=== PATIENT | female | born 1965 | race Caucasian/White ===

== ENCOUNTER → 2020-11-15 | Outpatient (CLI) | payer OTHER ==
[2020-11-15 15:04] VITALS: BP 141/74; PULSE 84; TEMP 98.2; BMI 46.0
--- NOTE | 2020-11-15 15:48 | P.BASOAP ---
Subjective Progress Note Date: 11/15/20 Principal diagnosis: Morbid obesity Patient presents the bariatric center after having not been seen for several years. Patient had her initial lap band placed in 2003. Presurgical weight 227. Approximately 1-2 years later patient had a gastric prolapse requiring band removal. Had a third surgery the patient had band replacement at [facility]. Patient's weight currently to 48. She is not sure how much fluid is in the band. Patient is interested in band removal and conversion to either sleeve gastrectomy or bypass. Denies reflux or vomiting currently. Recently started Adipex but had side effects and was forced to stop taking it. Patient has fibromyalgia and osteoporosis of her spine. Some exercise-induced asthma. No tobacco use Objective - Vital Signs Vital signs: Vital Signs Temp 98.2 F 11/15/20 14:58 Pulse 84 11/15/20 14:58 Resp BP 141/74 11/15/20 14:58 Pulse Ox Intake & Output 11/14/20 11/15/20 11/15/20 18:59 06:59 18:59 Weight 112.491 kg - Exam Physical exam: General: Well-developed, well-nourished HEENT: Normocephalic, sclerae nonicteric Abdomen: Nontender, nondistended Extremities: No edema Neuro: Alert and oriented Assessment/Plan (1) Morbid obesity Narrative/Plan: 55-year-old female with morbid obesity. Patient with weight gain. She is interested in conversion of her band to either sleeve gastrectomy or bypass. Surgical options reviewed in detail. Gastric bypass and sleeve gastrectomy short and long-term risks discussed. Patient would like to investigate gastric bypass further which I think is reasonable given the greater percentage of anticipated weight loss. We'll make an appointment for her to see a bariatric surgeon that specializes in gastric bypass to discuss this further. In the meanwhile will enter the patient's band in preparation for possible conversion. The patient's lap band port was palpated. The site was aseptically prepped. The Vila needle was advanced into the port. A total of 6 ml of fluid was removed. Band is now empty. Pressure was held and a sterile dressing was applied. Plan: Date: 11/15/20 Initial Weight: Initial BMI: Current Weight: 112.491 kg Current BMI: 46.0 Type of Surgery: Total Volume in Band: 0 Previous Volume: Volume Removed: 2 Volume Added: Band Size:
== END | disposition home or self-care (01) ==
LOC: BARWHC3 13:40
PROVIDERS: ATTEND Surgery
DX: E66.01 Morbid (severe) obesity due to excess calories (principal); Z68.42 Body mass index [BMI] 45.0-49.9, adult
CPT/HCPCS: 99202